=== PATIENT | male | born 1965 | race Caucasian/White ===

== ENCOUNTER 2022-12-26 18:14 | Emergency (ER) | payer OTHER ==
[~2022-12-26] VITALS: Ht 177.8 cm; Wt 104.3 kg
[~2022-12-26 18:14] MED LIST: HYDR-5191 PO; SIMV-371 PO
[2022-12-26 18:36] VITALS: BP 131/93
[2022-12-26] MEDS ORDERED: KETOROLAC 15 MG/ML VIAL IM ONE (20:15)
[2022-12-26] MEDS ORDERED: ACET-8905 PO (21:29)
[2022-12-26] MEDS ORDERED: NAPR-54 PO (21:29)
[2022-12-26] MEDS ORDERED: SULF-59 PO (21:29)
[2022-12-26] MEDS ORDERED: KETOROLAC 15 MG/ML VIAL ONE (22:18)
[2022-12-26 22:20] VITALS: BP 131/93
--- NOTE | 2022-12-26 22:20 | NUR ---
Patient discharged with v/s stable. Written and verbal after care instructions given and explained. Patient alert, oriented and verbalized understanding of instructions. Ambulatory with steady gait. All questions addressed prior to discharge. ID band removed. Patient advised to follow up with PMD. Rx of NAPROSYN, BACTRIM, HYDROCODONE given. Patient educated on indication of medication including possible reaction and side effects. Opportunity to ask questions provided and answered.
== END 2022-12-26 22:20 | disposition home or self-care (01) ==
LOC: MED 18:14
DX: M70.11 Bursitis, right hand (principal); Y93.89 Activity, other specified
CPT/HCPCS: 93971; 96372; 99285; J1885; Q0092